=== PATIENT | female | born 1990 | race Hispanic/Latino ===

== ENCOUNTER → 2018-02-08 13:59 | Outpatient (CLI) | payer OTHER, SELFPAY ==
[2018-02-08 15:16] LABS: Appearance Urine UA CLEAR; Bilirubin Urine UA NEGATIVE (NEGATIVE); Color Urine UA YELLOW; Glucose Urine UA NEGATIVE (Normal); Ketones Urine UA NEGATIVE (NEGATIVE); Leukocyte Esterase Urine UA NEGATIVE (NEGATIVE); Nitrite Urine UA Negative (Negative); Occult Blood Urine UA NEGATIVE (Negative); Protein Urine UA NEGATIVE (Negative); Specific Gravity Urine UA <=1.005 (1.000-1.035); Urobilinogen Urine UA 0.2 E.U./dL (0.2)
== END ==
PROVIDERS: Visit Provider Obstetrics & Gynecology
DX: Z34.01 Encounter for supervision of normal first pregnancy, first trimester (principal)
CPT/HCPCS: 81003; 87086

== ENCOUNTER → 2018-02-08 16:20 | Outpatient (CLI) | payer OTHER, SELFPAY ==
[2018-02-08 17:08] LABS: Appearance Urine UA CLEAR; Bilirubin Urine UA NEGATIVE (NEGATIVE); Color Urine UA YELLOW; Glucose Urine UA NEGATIVE (Normal); Ketones Urine UA NEGATIVE (NEGATIVE); Leukocyte Esterase Urine UA NEGATIVE (NEGATIVE); Nitrite Urine UA Negative (Negative); Occult Blood Urine UA NEGATIVE (Negative); Protein Urine UA NEGATIVE (Negative); Specific Gravity Urine UA 1.025 (1.000-1.035); Urobilinogen Urine UA 0.2 E.U./dL (0.2)
[2018-02-08 17:10] LABS: Add Manual Diff / Slide Review NO; Basophils Percent Auto 0.2 % (0-2); Eosinophils Percent Auto 1.1 % (2-4); Hematocrit 35.6 % (36-46); Hemoglobin 12.4 g/dL (12.0-16.0); Lymphocytes Percent Auto 19.1 % (25-40); Mean Corpuscular HGB Conc 34.9 % (30-36); Mean Corpuscular Hemoglobin 30.6 PG (26-34); Mean Corpuscular Volume 87.6 fL (80-100); Monocytes Percent Auto 6.3 % (3-14); Neutrophils Absolute Auto 6700 /uL (3000-5900); Neutrophils Percent Auto 73.3 % (50-75); Platelet Count 205 X10^3/uL (150-400); Red Blood Cell Count 4.07 X10^6/uL (4.0-5.2); Red Cell Distribution Width 12.8 % (11.6-14.8); White Blood Cell Count 9.1 X10^3/uL (4.5-11.0)
[2018-02-08 17:18] LABS: RBC Urine 0-1/HPF (0-5/HPF); WBC Urine 1-5/HPF (0-5/HPF)
[2018-02-08 17:19] LABS: Bacteria Urine Moderate (10-30); Culture Indicated Urine Specimen Cultured; Squamous Epithelial Cell Urine 1-5 /HPF
[2018-02-08 18:13] LABS: Hepatitis B Surface Antigen NEGATIVE s/c (NEGATIVE); Rubella Antibody IgG 31.8 IU/mL (>15)
[2018-02-08 18:30] LABS: HIV 1 and 2 Antibody NEGATIVE (NEGATIVE); Hep C Virus Ab w/Reflex Quant NEGATIVE s/c (NEGATIVE)
[2018-02-12 16:25] LABS: HSV 2 IGG AB < 0.90 index (< 0.90); HSV1IGG < 0.90 index (< 0.90)
[2018-02-15 11:04] LABS: Rapid Plasma Reagin NON REACTIVE
== END ==
PROVIDERS: Visit Provider Obstetrics & Gynecology
DX: Z34.01 Encounter for supervision of normal first pregnancy, first trimester (principal); Z34.90 Encounter for supervision of normal pregnancy, unspecified, unspecified trimester
CPT/HCPCS: 36415; 80055; 81001; 81003; 86695; 86696; 86703; 86787; 86803; 86850; 86900; 86901; 87086

== ENCOUNTER → 2018-04-09 13:33 | Outpatient (CLI) | payer OTHER, SELFPAY ==
--- NOTE | 2018-04-09 13:35 | DI.US.S_ITS ---
PROCEDURE: US OB >= 14 WEEKS FETUS INDICATIONS: 20 wk Anatomic survey OUTSIDE/PRIOR DATING DATA: Last menstrual period (LMP): 11/23/2017. LMP-based estimated date of delivery (SAM): 08/30/2018. First dating scan (date and location): 02/08/2018. Estimated date of delivery (SAM) from first dating scan: 08/25/2018. TECHNIQUE: Real-time scanning was performed of the fetus, with image documentation and biometric measurements. Endovaginal scanning: Not required COMPARISON: [facility], , OB <= 14 WEEKS FETUS, 02/08/2018, 15:55. FINDINGS: General: A single living intrauterine gestation is present. Presentation: Breech. Placenta: Placental position is anterior, without previa. Amniotic fluid index: 11.7 cm, normal range is 5-24 cm. heart rate: 143 beats per minute. Maternal cervical canal: 5.0 cm long. Normal lower limit is 2.5 cm. biometrics: Biparietal diameter: 19 weeks 6 days Head circumference: 20 weeks one day Abdominal circumference: 19 weeks 5 days Femur length: 19 weeks 5 days Estimated gestational age from initial scan: 20 weeks 2 days Composite gestational age from present scan: 19 weeks 6 days, normal growth Estimated weight and percentile: 308 g at the 18th percentile Measurement variability for biometric dating: +/- 7 days from 14 weeks to 15 weeks 6 days gestation, +/- 10 days from 16 weeks to 21 weeks 6 days gestation, +/- 2 weeks from 22 weeks to 27 weeks 6 days gestation, +/- 3 weeks for 28 weeks gestation or later. weight reference: 4500 g or EFW >90/95% is considered macrosomia or large for gestational age. EFW <10% is small for gestational age. EFW 5% or less is considered intra-uterine growth restriction. Anatomic survey: Neuro: Ventricles are non-dilated at less than 10 mm. Cisterna magna is normal at 3-11 mm. Cerebellum is normal in size and morphology. Nuchal skin fold: Normal at less than 6 mm between 14-21 weeks gestational age. Face: Nose and lips, facial profile are normal. Spine: No evidence for spina bifida. Heart: 4-chambered heart is present, with normal ventricular outflow tracts. Diaphragm: Diaphragm is intact. Stomach: Left-sided stomach is present. Kidneys: No hydronephrosis. Normal is less than 5 mm in 2nd trimester, less than 7 mm in 3rd trimester. Cord: 3-vessel cord has orthotopic insertion. Bladder: Normal in size. Extremities: All 4 extremities identified. IMPRESSION: Single, live intrauterine gestation at 19 weeks 6 days gestational age, normal growth and normal anatomy. Dictated by: Dandy Morales M.D. on 04/09/2018 at 15:26 Approved by: Dandy Morales M.D. on 04/09/2018 at 15:29
[2018-04-17 05:51] LABS: AFP, Serum 129.4 ng/mL; Calc Gestational Age 20.3; Est Date Determined by US; Maternal Weight 123 lbs; Number of Fetuses 1; Prev Pregnancies Down Syndrome N
== END ==
PROVIDERS: Visit Provider Obstetrics & Gynecology
DX: Z34.02 Encounter for supervision of normal first pregnancy, second trimester (principal); Z3A.19 19 weeks gestation of pregnancy
CPT/HCPCS: 36415; 76811; 82105

== ENCOUNTER → 2018-05-23 12:46 | Outpatient (CLI) | payer OTHER, SELFPAY ==
[2018-05-23 17:20] LABS: Hematocrit 31.1 % (36-46); Hemoglobin 10.6 g/dL (12.0-16.0)
[2018-05-23 18:10] LABS: GTT (PREG) 1 Hour PP 50gm Dose 124 mg/dL (76-139)
== END ==
PROVIDERS: Visit Provider Obstetrics & Gynecology
DX: Z34.02 Encounter for supervision of normal first pregnancy, second trimester (principal)
CPT/HCPCS: 36415; 82950; 85014; 85018

== ENCOUNTER → 2018-05-27 11:00 | Outpatient (CLI) | payer OTHER, SELFPAY | PROVIDERS: Visit Provider Obstetrics & Gynecology | DX: R30.0 Dysuria (principal) | CPT/HCPCS: 87077; 87086; 87186 ==

== ENCOUNTER 2018-05-27 11:20 | Observation (INO) | payer OTHER, SELFPAY | END 2018-05-27 13:43 | disposition home or self-care (01) | PROVIDERS: Admitting Provider Family Medicine; Visit Provider Family Medicine | DX: O23.42 Unspecified infection of urinary tract in pregnancy, second trimester (principal); Z3A.26 26 weeks gestation of pregnancy | CPT/HCPCS: 59025; G0378; G0379 ==

== ENCOUNTER 2018-07-13 20:52 | Observation (INO) | payer OTHER, SELFPAY ==
[2018-07-13] MEDS: NIFEdipine 10 MG CAPSULE PO ×4 (21:40→22:44)
[2018-07-13 21:58] LABS: RBC Urine None Seen (0-5/HPF)
[2018-07-13 22:01] LABS: Appearance Urine UA CLEAR; Bilirubin Urine UA NEGATIVE (NEGATIVE); Color Urine UA YELLOW; Glucose Urine UA NEGATIVE (Normal); Ketones Urine UA NEGATIVE (NEGATIVE); Leukocyte Esterase Urine UA TRACE (NEGATIVE); Nitrite Urine UA NEGATIVE (Negative); Occult Blood Urine UA NEGATIVE (Negative); Protein Urine UA NEGATIVE (Negative); Specific Gravity Urine UA <=1.005 (1.000-1.035); Urobilinogen Urine UA 0.2 E.U./dL (0.2); pH Urine UA 6.5 (4.5-8.0)
[2018-07-13 22:27] LABS: Bacteria Urine Few (2-10); Culture Indicated Urine Specimen Cultured; Squamous Epithelial Cell Urine 0-1 /HPF; WBC Urine 0-1/HPF (0-5/HPF)
== END 2018-07-13 23:15 | disposition home or self-care (01) ==
LOC: LABOR 20:55
PROVIDERS: Admitting Provider Family Medicine; Visit Provider Family Medicine
DX: Z34.83 Encounter for supervision of other normal pregnancy, third trimester (principal); Z3A.33 33 weeks gestation of pregnancy
CPT/HCPCS: 59025; 59050; 81001; 87086; G0378; G0379

== ENCOUNTER → 2018-08-07 16:34 | Outpatient (CLI) | payer OTHER, SELFPAY ==
[2018-08-08 15:10] LABS: Strep Grp B PCR NEG for Grp B Strep
== END ==
PROVIDERS: Visit Provider Obstetrics & Gynecology
DX: Z34.03 Encounter for supervision of normal first pregnancy, third trimester (principal)
CPT/HCPCS: 87653

== ENCOUNTER 2018-08-28 08:53 | Outpatient (CLI) | payer OTHER, SELFPAY | END 2018-08-28 10:18 | disposition home or self-care (01) | LOC: LABOR 09:48 → OB 09-04 08:31 | PROVIDERS: Family Provider Obstetrics & Gynecology; Visit Provider Obstetrics & Gynecology | DX: O36.8130 Decreased fetal movements, third trimester, not applicable or unspecified (principal); Z3A.39 39 weeks gestation of pregnancy | CPT/HCPCS: 59025; G0378; G0379 ==

== ENCOUNTER → 2018-08-30 12:10 | Outpatient (CLI) | payer OTHER, SELFPAY ==
--- NOTE | 2018-08-30 11:59 | DI.US.S_ITS ---
PROCEDURE: US OB LIMITED INDICATIONS: JESSIE OUTSIDE/PRIOR DATING DATA: Last menstrual period (LMP): 11/23/17. LMP-based estimated date of delivery (SAM): 08/30/18. First dating scan (date and location): 02/08/18 Estimated date of delivery (SAM) from first dating scan: 08/25/18. TECHNIQUE: Real-time scanning was performed of the fetus, with image documentation. Endovaginal scanning: None needed for this study COMPARISON: [facility], , US OB >= 14 WEEKS FETUS, 07/01/2018, 13:19. [facility], RG, US RETROPERITONEAL, 05/29/2018, 14:07. [facility], RG, US RENAL, 05/29/2018, 10:20. Merged With [facility], , US OB >= 14 WEEKS FETUS, 04/09/2018, 13:56. [facility], , US OB <= 14 WEEKS FETUS, 02/08/2018, 15:55. [facility], , US OB > 14 WEEKS, 07/11/2018, 14:07. FINDINGS: Limited study requested, for JESSIE only. Fetus is vertex, anterior placenta. No previa. JESSIE measures 5.4 cm. Heart rate 152 beats per minute. Estimated gestational age from initial scan: 40 weeks 4 days. IMPRESSION: 5.4 cm amniotic fluid index. cardiac activity observed. Limited study at physician request. Vertex presentation. Dictated by: Lyle Bautista M.D. on 08/30/2018 at 13:07 Approved by: Lyle Bautista M.D. on 08/30/2018 at 13:23
== END ==
PROVIDERS: Visit Provider Obstetrics & Gynecology
DX: Z34.93 Encounter for supervision of normal pregnancy, unspecified, third trimester (principal); Z3A.40 40 weeks gestation of pregnancy
CPT/HCPCS: 59025; 76815; G0379

== ENCOUNTER 2018-08-31 10:37 | Observation (INO) | payer OTHER, SELFPAY | END 2018-08-31 12:51 | disposition home or self-care (01) | PROVIDERS: Admitting Provider Obstetrics & Gynecology; Family Provider Obstetrics & Gynecology | DX: O48.0 Post-term pregnancy (principal); Z3A.40 40 weeks gestation of pregnancy | CPT/HCPCS: 59025; 59050; G0378; G0379 ==

== ENCOUNTER 2018-08-31 14:40 | Inpatient (IN) | payer OTHER, SELFPAY ==
--- NOTE | 2018-08-31 15:52 | PM.OBHP.1 ---
OB HPI Date/Time Date of admission: 08/31/18 Date Patient Seen: 08/31/18 Time Patient Seen: 15:52 History of Present Condition Chief complaint: OBS : 1 Para: 0 Estimated Date of Delivery: 08/30/18 Estimated Gestational Age (weeks): 40 1/7 Narrative: Naina Petty is a 27 year old female 1 para 0 at 40-,1/7 weeks gestation with a nonreassuring heart rate tracing Indications Indication for induction OB: nonreassuring APT (Nonreassuring heart rate tracing, oligohydramnios) History of Present care: good care, initiated at week # (11) and number of visits (12) Dating criteria: LMP confirmed by 1st trimester US Ultrasounds: normal 1st trimester US and normal mid trimester US Obstetrical complications: none Medical complications: none Preadmission Labs Blood type: O (+) positive -: Antibody screen: negative, GBS status: negative, HBsAG: negative, HIV: negative, HSV 1: negative, HSV 2: negative and RPR/VDLR: negative -: Chlamydia screen: not detected and Gonorrhea screen: not detected -: Rubella: immune and Varicella: immune HCT: 31.1 HCAB: negative PAP: Normal Quad screen: Normal Cell-free DNA: Normal Urine: Negative 1 hr GTT: 124 Evaluation Evaluation Baseline heart rate: 140 Variability: Moderate (11-25) monitor accelerations: Present monitor decelerations: Absent Uterine Contraction Intensity: Mild Category of Tracing: II Cervical dilation (cm): 0 Cervical effacement (%): 95 station: -1 [facility] Home Medications Medication Instructions Recorded Confirmed Type Double electric beast pump and #1 ea 07/01/18 07/13/18 Rx supplies nitrofurantoin macrocrystal 50 mg PO BEDTIME 07/13/18 07/13/18 History [Macrodantin] Allergies Allergy/AdvReac Type Severity Reaction Status Date / Time No Known Drug Allergies Allergy Verified 02/04/18 15:18 Exam Vital Signs (past 8 hours): Generally: A well-developed, well-nourished female no acute distress Lungs: Clear to auscultation bilaterally Cardiovascular: Regular rate and rhythm Abdomen: Soft, good bowel sounds Fundal height: 38 cm Estimated weight: 7-1/2 lb Extremities: Negative Homans, no edema Assessment and Plan (1) 40 weeks gestation of : Current visit: Yes Status: Acute (2) Oligohydramnios: Current visit: Yes Status: Acute Assessment: 27-year-old 1 para 0 at 40-,1/7 weeks gestation with oligohydramnios and a nonreassuring heart rate tracing Unfavorable cervix Plan: Cervidil Pitocin once favorable Epidural as necessary
[2018-08-31] MEDS: DINOPROSTONE VAG (CERVIDIL) 10 MG VAG (16:01)
[2018-08-31 16:58] LABS: Hematocrit 36.6 % (36-46); Hemoglobin 12.6 g/dL (12.0-16.0); Mean Corpuscular HGB Conc 34.4 % (30-36); Mean Corpuscular Hemoglobin 30.1 PG (26-34); Mean Corpuscular Volume 87.4 fL (80-100); Platelet Count 168 X10^3/uL (150-400); Red Blood Cell Count 4.18 X10^6/uL (4.0-5.2); Red Cell Distribution Width 14.2 % (11.6-14.8); White Blood Cell Count 11.1 X10^3/uL (4.5-11.0)
[2018-08-31 17:02] LABS: Add Manual Diff / Slide Review YES
[2018-08-31 17:48] LABS: Neutrophils Absolute Manual 6993 /uL (3000-5900); Smudge Cells 1+; Total Cells Counted 100
[2018-08-31 17:49] LABS: Anisocytosis 1+
[2018-08-31 17:50] LABS: Polychromasia 1+
[2018-08-31] MEDS: LACTATED RINGERS 1,000 ML 100 ML IV (23:08)
[2018-08-31] MEDS: ONDANSETRON 4 MG/2 ML INJ IV (23:26)
[2018-09-01 01:26] VITALS: BP 113/72
[2018-09-01] MEDS: LACTATED RINGERS 1,000 ML 100 ML IV (07:50)
--- NOTE | 2018-09-01 12:15 | PM.OBPRVD ---
Events: Labor Induction, Oligohydramnios and Low Fluid Volume in Amniotic Sac Delivery date: 09/01/18 Induction method: per misoprostol protocol (Cervidil) Delivery monitor: external FHT and external uterine Route of delivery: Episiotomy description: None Laceration description: Perineal - 1st Degree Delivery repair: vicryl and chromic Estimated blood loss (mL): 200 Anesthesia type: Epidural Complications: None Narrative: The patient was complete and pushed for 48 min. At 1054 a.m., a live male delivered spontaneously over an intact perineum. No nuchal cord. The remainder of the body delivered without difficulty and was placed on mom's abdomen. After the cord stopped pulsing it was double clamped and cut. Cord bloods were obtained. The placenta delivered intact with a 3 vessel cord at 11:02 a.m.. The fundus was massaged to firm. Pitocin was given in the IV fluids before placental delivery. A first-degree vaginal/perineal laceration was repaired in the usual fashion with 2 0 Vicryl and 2 0 chromic. Hemostasis was achieved. Estimated blood loss 200 cc. Apgars 9 at 1 min and 9 at 5 min. Epidural analgesia. Mom and infant stable to recovery. Plan for aftercare: To routine care
[2018-09-01] MEDS: IBUPROFEN 600 MG TABLET PO ×2 (15:48→22:27)
[2018-09-01] MEDS: DERMOPLAST SPRAY 20% 60 ML 1 SPRAY TOP (16:09)
[2018-09-01] MEDS: LANOLIN OINT 7 GM 1 APPLIC TOP (16:09)
[2018-09-02] MEDS: IBUPROFEN 600 MG TABLET PO (04:44)
[2018-09-02 05:17] LABS: Hematocrit 34.4 % (36-46); Hemoglobin 11.4 g/dL (12.0-16.0)
[2018-09-02 10:01] VITALS: BP 107/69; PULSE 78; RESP 14; TEMP 36.8
== END 2018-09-02 11:25 | disposition home or self-care (01) | DRG 807 ==
LOC: AC 14:46 → LABOR 15:11 → AC 09-02 08:10 → LABOR 09-02 08:10
PROVIDERS: Admitting Provider Obstetrics & Gynecology; Family Provider Obstetrics & Gynecology; Visit Provider Obstetrics & Gynecology
DX: O41.03X0 Oligohydramnios, third trimester, not applicable or unspecified (principal); Z37.0 Single live birth; Z3A.40 40 weeks gestation of pregnancy; O70.0 First degree perineal laceration during delivery
CPT/HCPCS: 01967; 36415; 59050; 59200; 59400; 85014; 85018; 85025; 86850; 86900; 86901; G0379; J2405; J3010